=== PATIENT | male | born 1990 | race Caucasian/White ===

== ENCOUNTER 2018-12-01 18:28 | Emergency (ER) | payer OTHER ==
--- NOTE | 2018-12-01 18:40 | EDPHY ---
H & P Time Seen by Provider: 12/01/18 18:35 HPI/ROS: CHIEF COMPLAINT: Brain fog HISTORY OF PRESENT ILLNESS: This is a generally healthy 28-year-old male who presents with what he describes as "brain fog". States that he has had some confusion on and off for the past 2 days. He woke yesterday morning feeling "off". At 1 point he tried to watch a movie and had some difficulty following at. He had a mild headache that resolved without treatment. He has had nausea but no vomiting. He denies diarrhea. He has not had fever. He tried to work yesterday but began feeling lightheaded and left work. He tells me that he had to sit in his car for a while before he felt safe to drive. At that time he was feeling lightheaded and also describes a "lightness" or "fluttery" feeling in his chest. He did not feel anxious and has no history of anxiety or panic attack. He is not under undue stress. He denies any ill contacts. No recent travel. This past medical history is remarkable only for a history of possible hyperlipidemia. In the past he was told that his cholesterol was high any took a statin for about 3 months. His doctor discontinued this medication and told him that he did not think he needed it. No family history of early coronary disease or VTE. He mentions that he has occasionally felt a numbness on the left side of his head. This is intermittent and short-lived when it occurs. He is not currently experiencing this. He has had no chiropractic manipulations. He denies trauma. No neck pain. He has been sleeping well. He feels that his diet is normal. REVIEW OF SYSTEMS: A ten system review of systems was performed and is negative with the exception of the items mentioned in the HPI. Past medical history: Possible hyperlipidemia Leg fracture Past surgical history: Sinus surgery Family history: Grandfather with coronary artery disease status post [place], CABG, and subsequent stenting. He in his 90s. Social history: He recently graduated from college. 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 He does not use tobacco products. No illicits. He drinks alcohol rarely. General Appearance: Alert. Vital signs reviewed. Initial heart rate 110-120. Blood pressure 174/124 in triage with a repeat pressure of 156/119. Respiratory rate 18. Room air pulse ox 99%. Temperature 37 degrees. Eyes: Pupils equal and round, no conjunctival injection, no discharge. Anicteric. ENT, Mouth: Mucous membranes are slightly dry, no oropharyngeal erythema or edema. Neck: No lymphadenopathy, supple. No carotid bruits. No meningismus. Respiratory: Lungs are clear to auscultation; no wheezes, rales, or rhonchi. Cardiovascular: Tachycardic and regular with a rate around 110. ; no murmur, rub, or gallop. Gastrointestinal: Abdomen is soft and nontender, no masses or organomegaly, bowel sounds normal. Skin: Warm and dry, no rashes on exposed skin, normal color. Back: Nontender to palpation over the thoracolumbar spine. No CVAT. Extremities: No lower extremity edema, no calf tenderness or swelling. Neurological: Alert and oriented. Moving all four extremities easily and equally. Cranial nerves II through XII are examined and are intact (visual acuity not tested). Strength is 5 over 5 bilaterally with testing of all major motor groups. Sensation is intact to light touch over all 4 extremities and over his scalp. Deep tendon reflexes are 2+ in the biceps and knees bilaterally. Gait is normal. [id number] is performed accurately. Psychiatric: Normal affect. No agitation. He does not appear anxious. Constitutional: Initial Vital Signs Temperature (C) 37.0 C 12/01/18 18:35 Heart Rate 122 H 12/01/18 18:35 Respiratory Rate 18 12/01/18 18:35 Blood Pressure 174/124 H 12/01/18 18:35 O2 Sat (%) 99 12/01/18 18:35 O2 Delivery Mode Room Air Allergies/Adverse Reactions: No Known Allergies Allergy (Unverified 05/15/12 01:13) Home Medications: Medication Instructions Recorded Miscellaneous Medical Supply [NO 1 ea MIS AD 05/15/12 HOME MEDS] Medical Decision Making - Diagnostics EKG Interpretation: 12 lead EKG is interpreted in [place] by emergency department physician. Shows sinus tachycardia with a rate of 122. There is probable left ventricular hypertrophy. 2nd EKG shows sinus rhythm with a rate of 96. ED Course/Re-evaluation: Somewhat confusing picture in a 28-year-old male complaining of brain fog. He is noted to be tachycardic and hypertensive in the emergency department. He is not experiencing chest pain but states that he has been feeling some "fluttering " and " lightness" in his chest. He does not have the appearance of someone experiencing an anxiety attack or panic attack. He is not febrile. Oropharynx is slightly dry but he does not overall appear dehydrated. His EKG shows sinus tachycardia with LVH. In the setting of tachycardia and lightheadedness yesterday, PE is a consideration. I think PE is unlikely but feel that it D-dimer is warranted in this setting. If D-dimer is normal will not pursue this diagnosis further. He is not describing poncho chest pain and using the HEART score, his score is 2 (low). A score of 2 is actually probably generous for him as I gave him 1 point for possible hypercholesterolemia and 1 point for an abnormal EKG. His EKG is abnormal, but not in the way that the scoring system describes, which is "nonspecific repolarization disturbance". His EKG is abnormal because he has a tachycardia. In any event, I feel that the chances of this being an acute coronary syndrome are low. I have explained this to him. I do not recommend further testing for ischemia in the emergency department. Laboratory studies are essentially negative with examination of CBC, chemistries , troponin, and D-dimer. I do not suspect infection based upon the history and physical examination. I wonder about the possibility of a cardiac arrhythmia causing his symptoms. I reviewed his chest x-ray. No acute pulmonary disease, no cardiomegaly. Patient re-evaluated at 8:15 p.m.. At that time his heart rate is just over 100. His blood pressure has improved and is 139/84. He tells me that he still feels somewhat out of it but that he feels less "jittery", calmer, and less aware of his heart. His description of feeling jittery makes me wonder about anxiety. Will try Ativan 0.5 mg IV and a 2nd L IV fluid. He is aware that his blood pressure has been high and he will have his PCP re- check it within the month. It has improved markedly during his stay in the ED. 9:00 p.m.. Patient is feeling somewhat better although still a bit foggy. I do not suspect an intracranial infection--meningitis or encephalitis. There is nothing that makes me think that this is intracranial hemorrhage or mass effect. Heart rate has returned to normal. Will obtain a repeat EKG. He and I discussed whether or not this might be a viral illness. We talked about the possibility of anxiety. At this point in time the diagnosis remains somewhat unclear and he is aware of that. BP is better and HR is normal at [place]. He is comfortable with watching and waiting. If anything changes dramatically for the worse he will return to the emergency department. If he is failing to improve he will follow up with his primary care physician. - Data Points Medications Given: Discontinued Medications Hydromorphone HCl (Dilaudid) 1 mg IVP EDNOW ONE Stop: 12/01/18 20:43 Last Admin: 12/01/18 21:25 Dose: Not Given Sodium Chloride (Ns) 1,000 mls @ 0 mls/hr IV EDNOW ONE; Wide Open PRN Reason: Protocol Stop: 12/01/18 20:22 Last Admin: 12/01/18 20:25 Dose: 1,000 mls Sodium Chloride (Ns) 1,000 mls @ 0 mls/hr IV EDNOW ONE; Wide Open PRN Reason: Protocol Stop: 12/01/18 19:01 Last Admin: 12/01/18 19:00 Dose: 1,000 mls Lorazepam (Ativan Injection) 0.5 mg IVP EDNOW ONE Stop: 12/01/18 20:21 Last Admin: 12/01/18 20:30 Dose: 0.5 mg Ondansetron HCl (Zofran) 4 mg IVP EDNOW ONE Stop: 12/01/18 20:43 Last Admin: 12/01/18 21:25 Dose: Not Given Point of Care Test Results: CBC CBC Collection Date 12/01/18 CBC Collection Time 19:00 WBC 10.47 RBC 6.19 HGB 18.5 HCT 53.3 PLT 306 Neut # 6.37 Neut 60.8 LYMPH # 2.76 LYMPH 26.4 MCV 86.1 Chemistry 12/01/18 12/01/18 19:08 19:06 POC Sodium 141 mEq/L mEq/L (135-145) POC Potassium 3.5 mEq/L mEq/L (3.3-5.0) POC Chloride 103.0 mEq/L mEq/L (97-110) POC Total CO2 24 mEq/L mEq/L (22-31) POC BUN 11 mg/dL mg/dL (7-23) POC Creatinine 1.0 mg/dL mg/dL (0.7-1.3) POC Glucose 114 mg/dL H mg/dL (70-100) POC Calcium 9.8 mg/dL mg/dL (8.5-10.4) POC Troponin I 0.01 ng/mL ng/mL (0.00-0.08) D-Dimer D-Dimer Collection Date 12/01/18 D-Dimer Collection Time 18:55 D-Dimer (ng/ml) <100 Departure - Departure Disposition: Home, Routine, Self-Care Clinical Impression: Tachycardia Condition: Good Instructions: Anxiety (ED), Tachycardia (ED) Additional Instructions: As you know, it is not entirely clear what has been causing you to feel poorly. I am giving you some information about a rapid heart rate and about anxiety. Your heart rate has returned to normal while you have been in the emergency department. If you develop a high heart rate that persists, if you feel lightheaded or if you faint, if you have a severe headache, if you have chest pain--you should be re-evaluated immediately. If you're not improving after a day or 2 of rest and hydration, you should follow up with Dr. Green. I am also providing some guidelines about using pain medicine: Adult Pain & Fever Control: We recommend Acetaminophen (Tylenol) and Ibuprofen (Motrin,Advil) for pain and fever control. When fever is high or pain severe, both drugs can be used at the same time, but at different intervals. Please note the time differences. Your dose is: Acetaminophen 650mg every 4 to 6 hours Ibuprofen 400mg every 8 hours with food Referrals: ANDRES GREEN [Other] - As per Instructions
[2018-12-01] MEDS ORDERED: NS 1,000 ML IV ONE ×2 (19:00→20:21)
--- NOTE | 2018-12-01 19:44 | CPEKG ---
Test Reason : OPEN Blood Pressure : / mmHG Vent. Rate : 122 BPM Atrial Rate : 121 BPM P-R Int : 149 ms QRS Dur : 099 ms QT Int : 308 ms P-R-T Axes : 041 027 003 degrees QTc Int : 439 ms Sinus tachycardia Probable left ventricular hypertrophy Anterior Q waves, possibly due to LVH Confirmed by Bobbi Rodriguez ([id number]) on 12/01/2018 7:44:24 PM Referred By: Bobbi Rodriguez Confirmed By:Bobbi Rodriguez
[2018-12-01] MEDS ORDERED: LORazepam 2 MG/ML INJ IVP ONE (20:20)
[2018-12-01] MEDS ORDERED: ONDANSETRON 4 MG/2 ML VIAL IVP ONE (20:42)
[2018-12-01] MEDS ORDERED: HYDROmorphONE/DILAUDID 2 MG/ML INJ IVP ONE (20:42)
--- NOTE | 2018-12-01 21:51 | CPEKG ---
Test Reason : OPEN Blood Pressure : / mmHG Vent. Rate : 096 BPM Atrial Rate : 096 BPM P-R Int : 154 ms QRS Dur : 098 ms QT Int : 343 ms P-R-T Axes : 048 029 011 degrees QTc Int : 434 ms Sinus rhythm Confirmed by Bobbi Rodriguez ([id number]) on 12/01/2018 9:50:38 PM Referred By: Bobbi Rodriguez Confirmed By:Bobbi Rodriguez
[2018-12-01 21:59] VITALS: BP 147/97
== END 2018-12-01 21:56 | disposition home or self-care (01) ==
LOC: CED 18:28
DX: R00.0 Tachycardia, unspecified (principal); E86.9 Volume depletion, unspecified
CPT/HCPCS: 71046-PO; 80048-ER; 84484-ER; 85025-QW-ER; 85379-QW-ER; 96361-ER; 96374-ER; 99285-ER; J2060

== ENCOUNTER → 2018-12-04 | Outpatient (CLI) | payer OTHER | LOC: CIMAGING 09:17 | PROVIDERS: ATTEND Family Medicine | DX: H53.9 Unspecified visual disturbance (principal); R03.0 Elevated blood-pressure reading, without diagnosis of hypertension; R00.0 Tachycardia, unspecified | CPT/HCPCS: 70450-PO ==